=== PATIENT | male | born 1970 | race African-American/Black ===

== ENCOUNTER 2017-05-23 23:40 | Emergency (ER) | payer BC ==
[~2017-05-23] VITALS: Ht 198.1 cm; Wt 118.6 kg
[2017-05-23 23:42] VITALS: BP 152/101; PULSE 75; RESP 18; TEMP 98.4; O2SAT 96
[2017-05-23 23:50] VITALS: BP 166/105; PULSE 78; RESP 18; O2SAT 97
[2017-05-24 00:10] VITALS: BP 137/88; PULSE 83; RESP 18; O2SAT 96
[2017-05-24] MEDS ORDERED: AZIT250T3 PO (00:13)
[2017-05-24] MEDS ORDERED: LISI-519 PO (00:13)
[2017-05-24] MEDS ORDERED: GUAI1SOL7 PO (00:14)
--- NOTE | 2017-05-24 00:22 | PD ---
HPI Chief Complaint: Respiratory Symptoms Time Seen by Provider: 00:20 Travel History International Travel<30 days: No Contact w/Intl Traveler<30days: No Traveled to known affect area: No History of Present Illness HPI 46-year-old male presents to the emergency department for complaint of persistent cough. Patient states since 5 or 6 days ago has had cold symptoms. Patient was seen at urgent care and given prescription for cough medicine had chest x-ray performed which revealed no infiltrate or pneumonia. Patient subsequently went inside his primary care provider as he continued to have coughing. Primary care provider started him on azithromycin patient has taken a one-time dose. Patient presents now due to persistent coughing. Patient denies any shortness of breath or wheezing. No hemoptysis. Nonproductive cough. No chest pain or shortness of breath. Patient also denies any abdominal pain vomiting posttussive emesis and no recent long distance travel protracted bedrest her surgical procedure as well as no lower extremity pain or swelling. No history of clotting disorder. No known respiratory illness symptoms. Patient does have hypertension by history. Patient is a nonsmoker. Patient does not recall being tested for the flu and did not receive this seasons vaccine. [facility] Past Medical History Narrative Medical Hypertension; no tobacco use; she has reviewed Social History Tobacco Use: No Allergies-Medications (Allergen,Severity, Reaction): Coded Allergies: No Known Allergies (Unverified , 05/24/17) Reported Meds & Prescriptions Reported Meds & Active Scripts Active Medrol Dosepak (Methylprednisolone) 4 Mg Dspk 4 Mg PO DIRECTED Per Pharmacist direction Reported Virtussin A-C Liq (Guaifenesin-Codeine Liq) 100-10 Mg/5 Ml Soln 10 Ml PO Q6H PRN Azithromycin 250 Mg Tab 250 Mg PO DIRECTED Take 2 tabs (500 mg) on day 1 then 1 tab daily x 4 days. Lisinopril 5 Mg Tab 5 Mg PO DAILY Review of Systems Except as stated in HPI: all other systems reviewed are Neg General / Constitutional: No: Fever, Chills HENT: Positive: Congestion, No: Sore Throat Cardiovascular: No: Chest Pain or Discomfort Respiratory: Positive: Cough, No: Shortness of Breath, Pleuritic Pain Gastrointestinal: No: Vomiting, Abdominal Pain Genitourinary: No: Dysuria, Flank Pain Musculoskeletal: No: Myalgias, Arthralgias Skin: No Rash Neurologic: No: Weakness Psychiatric: No: Anxiety Hematologic/Lymphatic: No: Lymph Node Enlargement Physical Exam Narrative GENERAL: Well-developed well-nourished male in no acute distress intermittent coughing without respiratory distress; GCS 15 SKIN: Warm and dry. HEAD: Normocephalic. EYES: No scleral icterus. No injection or drainage. NECK: Supple, trachea midline. No JVD or lymphadenopathy. CARDIOVASCULAR: Regular rate and rhythm without murmurs, gallops, or rubs. RESPIRATORY: Breath sounds equal bilaterally. No accessory muscle use. GASTROINTESTINAL: Abdomen soft, non-tender, nondistended. MUSCULOSKELETAL: No cyanosis, or edema. BACK: Nontender without obvious deformity. No CVA tenderness. Data Data Last Documented VS Vital Signs Date Time Temp Pulse Resp B/P (MAP) Pulse Ox O2 Delivery O2 Flow Rate FiO2 05/24/17 02:15 05/24/17 01:49 78 16 96 Room Air 05/23/17 23:42 98.4 Orders Orders Complete Blood Count With Diff (05/24/17 00:20) Basic Metabolic Panel (Bmp) (05/24/17 00:20) Influenzae A/B Antigen (05/24/17 00:20) Iv Access Insert/Monitor (05/24/17 00:20) Oximetry (05/24/17 00:20) Sodium Chloride 0.9% Flush (Ns Flush) (05/24/17 00:30) Sodium Chlor 0.9% 1000 Ml Inj (Ns 1000 M (05/24/17 00:30) Benzonatate (Tessalon) (05/24/17 00:30) Methylprednisolone So Succ Inj (Solumedr (05/24/17 00:30) Ketorolac Inj (Toradol Inj) (05/24/17 00:30) Troponin I (05/24/17 00:20) Magnesium (Mg) (05/24/17 00:20) Electrocardiogram (05/23/17 23:52) Labs Laboratory Tests Test 05/24/17 00:50 White Blood Count 8.7 TH/MM3 Red Blood Count 5.59 MIL/MM3 Hemoglobin 13.5 GM/DL Hematocrit 44.1 % Mean Corpuscular Volume 78.9 FL Mean Corpuscular Hemoglobin 24.2 PG Mean Corpuscular Hemoglobin Concent 30.7 % Red Cell Distribution Width 13.1 % Platelet Count 281 TH/MM3 Mean Platelet Volume 8.2 FL Neutrophils (%) (Auto) 53.3 % Lymphocytes (%) (Auto) 30.4 % Monocytes (%) (Auto) 10.1 % Eosinophils (%) (Auto) 5.7 % Basophils (%) (Auto) 0.5 % Neutrophils # (Auto) 4.7 TH/MM3 Lymphocytes # (Auto) 2.6 TH/MM3 Monocytes # (Auto) 0.9 TH/MM3 Eosinophils # (Auto) 0.5 TH/MM3 Basophils # (Auto) 0.0 TH/MM3 CBC Comment AUTO DIFF Differential Comment AUTO DIFF CONFIRMED Platelet Estimate NORMAL Platelet Morphology Comment NORMAL Ovalocytes 1+ Teresa Cells 1+ Blood Urea Nitrogen 11 MG/DL Creatinine 1.00 MG/DL Random Glucose 111 MG/DL Calcium Level 8.3 MG/DL Magnesium Level 2.3 MG/DL Sodium Level 137 MEQ/L Potassium Level 4.2 MEQ/L Chloride Level 103 MEQ/L Carbon Dioxide Level 29.0 MEQ/L Anion Gap 5 MEQ/L Estimat Glomerular Filtration Rate 97 ML/MIN Troponin I LESS THAN 0.02 NG/ML MDM Medical Decision Making Medical Screen Exam Complete: Yes Emergency Medical Condition: Yes Medical Record Reviewed: Yes Interpretation(s) EKG: Normal sinus rhythm with LVH no acute ST elevation or injury pattern change Chest x-ray: Patient declined as just had a chest x-ray on Tuesday Influenza A/B antigen: Negative Troponin I: Less than 0.02 CBC is automated differential: Grossly within normal range Metabolic panel within normal limits CBC & BMP Diagram 05/24/17 00:50 Calcium Level 8.3 L, Magnesium Level 2.3 Vital Signs Date Time Temp Pulse Resp B/P (MAP) Pulse Ox O2 Delivery O2 Flow Rate FiO2 05/24/17 02:15 05/24/17 01:49 78 16 146/95 (112) 96 Room Air 05/24/17 01:46 16 05/24/17 00:24 18 97 Room Air 05/24/17 00:17 78 18 99 Room Air 05/24/17 00:10 83 18 137/88 (104) 96 Room Air 05/23/17 23:50 78 18 166/105 (125) 97 Room Air 05/23/17 23:42 98.4 75 18 152/101 (118) 96 Differential Diagnosis Cough, bronchitis, pneumonia, reactive airways disease, PE, ACS, CHF Narrative Course just had cxr that was negative Patient given Tessalon Perles Solu-Medrol Symptoms improved after Solu-Medrol and Tessalon Perles Patient given prescription for Medrol Dosepak has cough syrup and is encouraged to complete course of antibiotic Patient is stable for outpatient management and follow-up with his provider Diagnosis Primary Impression: Bronchitis Referrals: Primary Care Physician call for appointment Patient Instructions: General Instructions Additional Instructions: Increase fluid hydration Complete course of steroid Continue your antibiotic as prescribed by your primary care provider Use cough medicine as prescribed as needed Return to the emergency for free concerns or change in condition Take acetaminophen and/or ibuprofen as needed for pain or for fever 100.4F or greater Med/Other Pt SpecificInfo: Prescription(s) given, No Change to Meds Scripts Methylprednisolone Dosepak (Medrol Dosepak) 4 Mg Dspk 4 MG PO DIRECTED, #1 DSPK 0 Refills Per Pharmacist direction Prov: Janette Rich MD 05/24/17 Disposition: DISCHARGE HOME Condition: Stable Janette Rich MD May 24, 2017 00:22
[2017-05-24 00:24] VITALS: RESP 18; O2SAT 97
[2017-05-24] MEDS ORDERED: BENZONATATE 100 MG CAP PO ONE (00:30)
[2017-05-24] MEDS ORDERED: KETOROLAC TROMETHAMINE 30 MG/ML (IVP) VIAL IV PUSH ONE (00:30)
[2017-05-24] MEDS ORDERED: methylPREDNISolone SOD SUCC 125 MG/2 ML VIAL IV PUSH ONE (00:30)
[2017-05-24] MEDS ORDERED: SODIUM CHLORIDE 0.9% FLUSH 10 ML FLUSH IVF PRN (00:30)
[2017-05-24] MEDS ORDERED: SODIUM CHLOR 0.9% 1000 ML INJ 1,000 ML IV ONE (00:30)
[2017-05-24 00:57] LABS: AUTOMATED NEUTROPHIL # 4.7 TH/MM3 (1.8-7.7); BASOPHIL % 0.5 % (0.0-2.0); EOSINOPHIL # 0.5 TH/MM3 (0-0.4); EOSINOPHIL % 5.7 % (0.0-4.0); HEMATOCRIT 44.1 % (39.0-51.0); LYMPH % 30.4 % (9.0-44.0); LYMPHOCYTE # 2.6 TH/MM3 (1.0-4.8); MEAN CELL VOLUME 78.9 FL (80.0-100.0); MEAN CORPUSCULAR HEMOGLOBIN 24.2 PG (27.0-34.0); MEAN CORPUSCULAR HGB CONC 30.7 % (32.0-36.0); MONO % 10.1 % (0.0-8.0); NEUT % 53.3 % (16.0-70.0); PLATELET COUNT 281 TH/MM3 (150-450); RED BLOOD COUNT 5.59 MIL/MM3 (4.50-5.90); RED CELL DISTRIBUTION WIDTH 13.1 % (11.6-17.2); WHITE BLOOD COUNT 8.7 TH/MM3 (4.0-11.0)
[2017-05-24 00:59] LABS: HEMO FLAGS AUTO DIFF
[2017-05-24 01:11] LABS: CHLORIDE 103 MEQ/L (98-107); POTASSIUM 4.2 MEQ/L (3.5-5.1); SODIUM (NA) 137 MEQ/L (136-145)
[2017-05-24 01:15] LABS: ANION GAP 5 MEQ/L (5-15); BLOOD UREA NITROGEN 11 MG/DL (7-18); MAGNESIUM 2.3 MG/DL (1.5-2.5)
[2017-05-24 01:18] LABS: GLOMERULAR FILTRATION RATE 97 ML/MIN (>89)
[2017-05-24 01:37] LABS: BURR CELLS 1+ (NORMAL); OVALOCYTES 1+ (NORMAL); PLATELET ESTIMATE SMEAR NORMAL (NORMAL); PLATELET MORPHOLOGY NORMAL (NORMAL); SCAN/DIFF AUTO DIFF CONFIRMED
[2017-05-24 01:49] VITALS: BP 146/95; PULSE 78; RESP 16; O2SAT 96
[2017-05-24] MEDS ORDERED: MEDR4PAK PO (01:52)
--- NOTE | 2017-05-24 14:22 | EKG ---
Date Performed: 05/23/2017 Time Performed: 23:52:25 PTAGE: 46 years EKG: Sinus rhythm MODERATE VOLTAGE CRITERIA FOR LVH, CONSIDER NORMAL VARIANT BORDERLINE ECG NO PREVIOUS TRACING DOCTOR: Nabila Fuentes Interpretating Date/Time 05/24/2017 14:21:11
== END 2017-05-24 02:17 | disposition home or self-care (01) ==
LOC: PHED 23:40
DX: J40 Bronchitis, not specified as acute or chronic (principal); I10 Essential (primary) hypertension; Z79.899 Other long term (current) drug therapy
CPT/HCPCS: 80048; 83735; 84484; 85025; 87804; 93005; 96361; 96374; 96375; 99284; J1885; J2930; J7030